=== PATIENT | male | born 1950 | race Caucasian/White ===

== ENCOUNTER 2017-11-27 10:54 | Outpatient (CLI) | payer BC ==
[2017-11-27] MEDS ORDERED: Gadobenate Dimeglumine 529 MG/1 ML (20ML VIAL) ONE (13:53)
--- NOTE | 2017-11-27 14:02 | MRI ---
BRAIN MRI WITH AND WITHOUT CONTRAST: HISTORY: Vertigo. Right ear swelling. Sensorineural hearing loss bilaterally. COMPARISON: 04/24/13. TECHNIQUE: A brain MRI and internal auditory canal were performed with and without intravenous Gadolinium admini stration. Multisequential, multiplanar imaging is performed. FINDINGS: BRAIN MRI: No parenchymal hemorrhage. No extraaxial hematoma. No parenchymal mass, mass effect, or midline dawit ft. Brain volume is age appropriate. Cortical yeung-white matter differentiation is preserved. Ventricles and sulci are patent and symmetric. Central arterial flow voids are maintained. Absent restricted diffusion. Calvarium has a normal T1 marrow signal intensity. Midline brain parenchymal structures are unremark able. Minimal T2 and FLAIR white matter hyperintensities due to chronic small-vessel ischemic change. Adequate aeration of the sinuses and mastoid air cells. No pathologic enhancement of the brain parenchyma. MRI OF THE INTERNAL AUDITORY CANALS: There is symmetric signal intensity of the internal auditory canal and inner ear structures. Symmetr ic signal intensity in the 5th as well as the 7th/8th cranial nerve complexes. No abnormal enhancement. IMPRESSION: 1. Unremarkable pre- and post-contrast internal auditory canal MRI. 2. Unremarkable pre- and post-contrast brain MRI. POS: [facility]
== END 2017-11-27 10:55 | disposition home or self-care (01) ==
LOC: MRI 10:54
PROVIDERS: ATTEND Specialist
DX: H90.3 Sensorineural hearing loss, bilateral (principal)
CPT/HCPCS: 70553; A9579

== ENCOUNTER 2020-03-07 16:00 | Emergency (ER) | payer BC, OTHER ==
[2020-03-07 16:40] LABS: #Lymphocytes 1.4 thou/uL (1.20-3.40); #Monocytes 0.6 thou/uL (0.11-0.59); #Neutrophils 3.8 thou/uL (1.40-6.50); %Basophils 0.5 % (0.0-1.0); %Eosinophils 0.7 % (0.0-10.0); %Lymphocytes 23.5 % (21.0-51.0); %Monocytes 10.6 % (0.0-10.0); %Neutrophils 64.8 % (42.0-75.0); Hemoglobin 15.3 g/dL (14.0-18.0); Mean Corpuscular HGB CONC 35.2 g/dL (32.0-36.0); Mean Corpuscular Hemoglobin 33.2 pg (27.0-31.0); Mean Corpuscular Volume 94.4 fL (78.0-98.0); Mean Platelet Volume 7.3 fL (7.4-10.4); Platelet Count 222 thou/uL (130-400); RBC Distribution Width 11.6 % (11.5-14.5); Red Blood Cell (RBC) Count 4.59 mill/uL (4.70-6.10); White Blood Cell (WBC) Count 5.9 thou/uL (4.8-10.8)
--- NOTE | 2020-03-07 16:43 | RAD ---
XR Chest 1 View Portable History: Chest pain Comparison: None. Findings: Lungs are clear. No pneumothorax or effusion. Cardiac silhouette and mediastinal contours a re within normal limits. No acute osseous abnormality. Impression: No acute intrathoracic abnormality.
[2020-03-07 17:04] LABS: ALT (SGPT) 17 U/L (8-55); AST (SGOT) 19 U/L (5-34); Albumin 3.9 g/dL (3.4-4.8); Alkaline Phosphatase 68 U/L (40-110); Anion Gap 14 mmol/L (10-20); BUN (Urea Nitrogen) 13 mg/dL (8.4-25.7); Bilirubin, Total 0.4 mg/dL (0.2-1.2); Calc. Creatinine Clearance 0 mL/min (70-130); Calcium 8.8 mg/dL (7.8-10.44); Carbon Dioxide 22 mmol/L (23-31); Chloride 103 mmol/L (98-107); Estimated GFR-MDRD Greater than 90; Globulin 3.3 g/dL (2.4-3.5); Glucose 120 mg/dL (83-110); Potassium 4.3 mmol/L (3.5-5.1); Protein, Total 7.2 g/dL (5.8-8.1); Sodium 135 mmol/L (136-145)
--- NOTE | 2020-03-14 10:31 | EKG ---
Test Reason : Blood Pressure : / mmHG Vent. Rate : 093 BPM Atrial Rate : 093 BPM P-R Int : 140 ms QRS Dur : 080 ms QT Int : 334 ms P-R-T Axes : 037 006 032 degrees QTc Int : 415 ms Normal sinus rhythm Normal ECG Confirmed by JUVENTINO YO ([id number]), proposal editor MARLENE JACOB ([id number]) on 03/14/2020 10:31:11 AM Referred By: Confirmed By:JUVENTINO YO
== END 2020-03-07 19:00 | disposition home or self-care (01) ==
LOC: ERS 16:00
DX: U07.1 COVID-19 (principal); I10 Essential (primary) hypertension; E78.00 Pure hypercholesterolemia, unspecified; Z79.899 Other long term (current) drug therapy
CPT/HCPCS: 36415; 71045; 80053; 83605; 84484; 85025; 85379; 86140; 87040; 93005

== ENCOUNTER 2023-01-12 14:20 | Outpatient (CLI) | payer BC | END 2023-01-12 14:21 | disposition home or self-care (01) | LOC: BICMRI 14:20 | PROVIDERS: ATTEND Nurse Practitioner Family | DX: M21.372 Foot drop, left foot (principal); M47.816 Spondylosis without myelopathy or radiculopathy, lumbar region; M51.36 Other intervertebral disc degeneration, lumbar region; M89.38 Hypertrophy of bone, other site | CPT/HCPCS: 72148 ==